=== PATIENT | male | born 1985 | race American Indian/Alaskan Native ===

== ENCOUNTER 2017-02-12 06:02 | Emergency (ER) | payer OTHER ==
[2017-02-12 06:07] VITALS: BP 139/95
--- NOTE | 2017-02-12 07:38 | Cat Scan Report ---
CRANIAL CT SCAN: History: Headache. Serial contiguous axial images were obtained through the cranium. Intravenous contrast material was not administered. The ventricles are normal in size and appearance. There is no mass effect or midline shift. No areas of abnormally increased or decreased attenuation are seen. No mass lesion is seen. The mastoid air cells and visualized portions of the sinuses are normal. IMPRESSION: Cranial CT scan within normal limits.
== END 2017-02-12 07:00 | disposition left against medical advice (07) ==
LOC: ED 06:02
DX: G43.909 Migraine, unspecified, not intractable, without status migrainosus (principal); Z53.21 Procedure and treatment not carried out due to patient leaving prior to being seen by health care provider
CPT/HCPCS: 70450